=== PATIENT | female | born 1970 | race Hispanic/Latino ===

== ENCOUNTER 2018-07-22 13:58 | Outpatient (CLI) | payer MEDICAID | END 2018-07-22 13:59 | disposition home or self-care (01) | LOC: RAD 13:58 ==

== ENCOUNTER 2018-07-27 14:47 | Outpatient (CLI) | payer MEDICAID | END 2018-07-27 14:48 | disposition home or self-care (01) | LOC: RAD 14:48 | DX: G06.0 Intracranial abscess and granuloma (principal) ==